=== PATIENT | female | born 1980 | race African-American/Black ===

== ENCOUNTER 2018-05-12 05:29 | Emergency (ER) | payer SELFPAY | END 2018-05-12 06:13 | disposition home or self-care (01) | LOC: ERS 05:29 | DX: J02.9 Acute pharyngitis, unspecified (principal) | CPT/HCPCS: 87081; 87430; 99283 ==

== ENCOUNTER 2018-07-13 00:44 | Emergency (ER) | payer SELFPAY | END 2018-07-13 01:22 | disposition home or self-care (01) | LOC: ERS 00:44 | DX: L03.113 Cellulitis of right upper limb (principal) | CPT/HCPCS: 99282 ==